=== PATIENT | male | born 1950 | race Caucasian/White ===

== ENCOUNTER → 2022-01-18 07:49 | Outpatient (CLI) | payer OTHER, SELFPAY ==
[2022-01-18 10:11] LABS: COVID19 -Nasal RAPID Negative (Negative)
== END ==
PROVIDERS: Referring Provider Orthopaedic Surgery Orthopaedic Surgery of the Spine; Visit Provider Orthopaedic Surgery Orthopaedic Surgery of the Spine
DX: Z11.59 Encounter for screening for other viral diseases (principal); Z20.822 Contact with and (suspected) exposure to COVID-19
CPT/HCPCS: 87635; C9803

== ENCOUNTER 2022-01-19 07:45 | Day surgery (SDC) | payer OTHER, SELFPAY ==
[2022-01-12 13:40] VITALS: BMI 41.6
[2022-01-19] VITALS (17 sets, daily range): BP systolic 140–177; BP diastolic 72–99; PULSE 69–106; RESP 12–18; TEMP 35.2–36.8; O2SAT 94–97; BMI 41.6
--- NOTE | 2022-01-19 | DI.RAD.S_ITS ---
PROCEDURE: XR LUMBAR SPINE 2-3V INDICATIONS: L4-5 L5-S1 TLIF TECHNIQUE: 2 intraop views of the lumbar spine were acquired. COMPARISON: None. FINDINGS: Intraoperative views obtained demonstrate fusion hardware and interbody device placement in the lower lumbar spine and lumbosacral junction. IMPRESSION: Intraoperative imaging as above. Dictated by: Andrew Melchor M.D. on 01/19/2022 at 14:24 Transcribed by: CURRY on 01/19/2022 at 14:25 Approved by: Andrew Melchor M.D. on 01/19/2022 at 16:54
[2022-01-19] MEDS: LACTATED RINGERS 1,000 ML 42 ML IV ×3 (08:23→11:50)
--- NOTE | 2022-01-19 08:24 | SUR.PREOP ---
States that he is unsure which medications he takes in the morning or evening. States that his metoprolol was taken either last night or this morning.
--- NOTE | 2022-01-19 08:52 | PM.PREOP ---
Pre-operative Note COVID-19 COVID-19 status: Negative Result date/Date tested (Pos, Neg/Pending): 01/18/22 Criteria for continued procedure: Expected advancement of disease process, Possibility delay results in more complex future surgery or treatment, Increased loss of function, Continuing or worsening of significant or severe pain, Deterioration of the patient's condition or overall health and Delay expected to result in less-positive ultimate med/surg outcome Interval Note History & Physical reviewed/Exam performed by Physician: Yes Changes to H&P: No
[2022-01-19] MEDS: CEFAZOLIN 2 GM/20 ML SYRINGE IV ×2 (10:00→18:17)
--- NOTE | 2022-01-19 10:24 | SUR.OPER ---
Addendum entered by Bonnie Leal R.N. 01/19/22 10:50: Prone on spine table, head in foam head support, neck alignment and pressure points approved by anesthesia and surgeon. Upper body ama hugger applied. Padded chest and pelvic supports, gel pad at knees, between heels padded with gel pad, lower legs supported by pillows and toes floating free; nipples, genitalia and toes free of pressure,arms secured on foam padded arm boards at <90 degrees abduction. Tape over blanket at thigh secured to table. Positioning onto prone table directed and approved by surgeon. Original Note: Prone on spine table, head in foam head support, padded chest and pelvic supports, gel pad at knees, lower legs supported by pillows; nipples, genitalia and toes free of pressure, arms secured on foam padded arm boards at <90 degrees abduction. Tape over blanket at thigh secured to table.
[2022-01-19] MEDS: BUPIVACAINE 0.5% (PF) 30 ML, EPINEPHrine 0.15 MG INJ (12:03)
[2022-01-19] MEDS: BUPIVACAINE LIPOSOME 266 MG/20 ML VIAL INJ (12:04)
--- NOTE | 2022-01-19 12:35 | PM.OP.1 ---
Operative Date/Time/Diagnoses Date of procedure: 01/19/22 Time of procedure: 10:00 Pre-op diagnosis: 1. L4-5, L5-S1 spinal stenosis with radiculopathy 2. Lumbar spondylosis with radiculopathy Post-op diagnosis: same Procedure & Clinicians Procedure: 1. L4-5, L5-S1 Postero-lateral and posterior interbody fusion 2. L4-5, L5-S1 interbody cage placement. 3. L4-5, L5-S1 decompressive laminectomy with bilateral facetecomies 4. L4-5, L5-S1 Posterior segmental instrumentation 5. [place] of bone marrow from iliac crest 6. Utilization of microsurgical technique and operating microscope 7. Utilization of robotic assised navigation Same procedure as scheduled: Yes Indications: Patient has been having chronic back pain and worsening lumbar radiculopathy. Patient failed multiple conservative management with worsening pain weakness and numbness in his lower extremity. Patient has been having difficulty performing activity of daily living. After discussing risks benefits of treatment options, patient elected proceed with surgery. Surgeon: Yadi Lacy Receiving Associate: Sydnee Mccullough Click Yes if Unassisted: No Anesthesia Type: General Operative Notes Closure Type: primary Specimen(s): none sent Prosthetic devices, grafts, tissues, transplants, or devices: Globus CREO MIS screws, Rise cages Applied: catheter Estimated Blood Loss (mL): 150 Blood products transfused: none Procedure in detail: Patient was seen in the preoperative area. Risks and benefits of the surgery was discussed with the patient. Informed consent was obtained from the patient and placed in the chart. Surgical site was marked. Patient was taken to the operative room. General anesthesia was administered. Prophylactic antibiotic was given to the patient less than 30 min before the incision was made. Patient was placed into a prone position on the Thomas table. Patient's back was then prepped and draped in the sterile fashion. Time-out was performed at this time. After patient was prepped and draped, patient's PSIS was palpated and marked bilaterally. Small 1 cm incision was made over the PSIS for placement of the reference probes. Two trocar was placed into the PSIS 1 on each side. The reference probe was attached to the trocar of the reference apparatus. At this time the C-arm imaging was used to confirm AP and lateral of L4-L5, L5-S1 vertebrae and merged the C-arm imaging using the flipClass robotic navigation system with the CT of the lumbar spine. After successful merging was completed and confirmed, skin marker was used to jeffry out the skin incision using the flipClass robotic arm. Bilateral incision was made at this time. Pre templated trajectory was used and guided using the flipClass robotic navigation system for bilateral L4, L5, S1 pedicle screw placement. This was done by using the robotic arm to guide the high-speed bur to make a cortical entry point. Next a drill was placed also using the robotic arm and guided using the navigation system drilling partially through bilateral L4, L5 and S1 pedicles. Next L4, L5, S1 pedicle screws it was pre templated and measured was placed onto the power wagon driver salesperson and inserted into the pedicles bilaterally. After all 6 screws were placed C-arm imaging was taken of both AP and lateral to confirm the placement. Excellent placement of the screws were confirmed and a matched precisely with the pre planned screw placement using the navigation system. MARs retractor was inserted using IntYivation guidence. Globus MARS retractors was placed inside the incision and docked onto the L4 and L5 lamina. Using microsurgical technique and operating microscope, a L4, L5 laminectomy and L4-5, L5-S1 facetectomy was performed using a Kerrison rongeur. Patient was found have severe lateral recess and neural foramen stenosis which was fully decompressed after the laminectomy facetectomy. More than 75% of the facets were removed during the process of decompression rendering L4-5, L5-S1 level grossly unstable and required a fusion procedure at the same time. The disc space at L4-5, L5-S1 was identified, and a total diskectomy was performed at L4-5, L5-S1 level. The endplates were decorticated using a rasp and shaver. The total diskectomy and decortication was performed at L4-5, L5-S1 level in order to to accomplish a L4-5, L5-S1 fusion. The local bone from the laminectomy and facetectomy was saved for local bone grafting. After the total diskectomy and decortication was completed, Trifecta bone graft material was combined with local bone that was harvested earlier. At this time, a separate skin is incision was made over the iliac crest. A Jamshidi needle was inserted into the iliac crest through a separate skin incision. 5 cc of bone marrow aspiration was obtained through the separate skin incision using a Jamshidi needle from the iliac crest. The bone marrow aspiration was combined with local bone and the Trifecta bone grafting material. The bone grafting material was placed into the L4-5, L5-S1 interbody space along with a expandable cage. The cage was expanded to its maximum height using the torque limiting screwdriver. The disc preparation as well as the cage insertion were also performed under navigation guidance. After the cage was placed, AP and lateral C-arm imaging was taken to confirm placement of the cage and excellent position was confirmed. Globus MARS retractor was inserted and docked onto the L4-5, L5-S1 posterolateral gutter on the right side. Using the power drill, posterior-lateral decortication was performed at L4-5, L5-S1 level until bleeding cortical bone was identified. The remaining bone grafting material was placed into the L4-5, L5-S1 posterior lateral gutter he order to accomplish posterolateral fusion at the L4-5, L5-S1 level. At this time the tulips were attached to the L4, L5, S1 pedicle screw shanks. After measuring the length of the rods, they were inserted into the tulips of the pedicle screws and locked in place using locking caps and torque limiting screwdriver bilaterally. Total 6 caps and 2 titanium rods was used in order to complete the posterior instrumentation construct. After all the hardware was placed, and confirmed with AP and lateral C-arm imaging, the wound was then irrigated with sterile normal saline and packed with Ray-Jl gauze for 3 min to accomplish hemostasis. After the gauze was removed the deep fascia was closed with #1 Vicryl suture. The subcutaneous layer was closed with 2-0 Vicryl. The skin was closed with skin skyler. Patient tolerated the procedure well. There were no surgical complications. Patient had a difficult intubation at the beginning of the surgery. Patient was successfully intubated and tolerated general anesthesia without issues. Complications: none Post-operative Condition: stable Disposition: PACU Plan for aftercare: Admit to inpatient hospital
[2022-01-19] MEDS: fentaNYL 100 MCG/2 ML INJ IV ×2 (13:07→13:15)
[2022-01-19] MEDS: HYDROMORPHONE 2 MG INJ IV ×3 (13:10→13:27)
[2022-01-19] MEDS: OXYCODONE/ACETAMINOPHEN 5/325 TABLET 1 TAB PO ×2 (13:13→13:45)
--- NOTE | 2022-01-19 14:07 | SUR.PHASEI ---
report called to Tere RUIZ and opportunity for questions given. Pt being transferred to room 224. pt updated on plan of care and is agreeable.
[2022-01-19] MEDS: SODIUM CHLORIDE 0.9% 1,000 ML 100 ML IV ×2 (15:00→23:55)
[2022-01-19] MEDS: hydrOXYzine pamoate 25 MG CAPSULE PO (15:36)
[2022-01-19] MEDS: ACETAMINOPHEN 325 MG TABLET 650 MG PO (15:40)
[2022-01-19] MEDS: OXYCODONE IR 5 MG TABLET 10 MG PO ×2 (15:40→23:54)
[2022-01-19] MEDS: ONDANSETRON 4 MG/2 ML INJ IV ×2 (17:00→23:54)
[2022-01-19] MEDS: HYDROMORPHONE 0.5 MG INJ IV ×2 (18:12→20:21)
--- NOTE | 2022-01-19 19:48 | PC.NURSE ---
Pt arrived from PACU at 1420, VSS afebrile, weaned to RA. He reports pain 7-10/10 and mild to moderate nausea. He is able to get up to the chair x1 assist. Liu draining CYU. Dressing to back with shadow dressing, upon getting back to bed some moderate bleeding to dressing, reinforced dressing with x1 ABD pad. He uses IS reaching 3000. IVF NS at 100 ml/hr. He reports baseline numbness to fingers and toes. endorsed to oncoming RN.
[2022-01-19] MEDS: sulfaSALAzine 500 MG TABLET 1000 MG PO (20:15)
[2022-01-19] MEDS: HYDROXYCHLOROQUINE 200 MG TABLET 400 MG PO (20:15)
[2022-01-19] MEDS: ATORVASTATIN 20 MG TABLET 10 MG PO (20:15)
[2022-01-19] MEDS: DOCUSATE 100 MG CAPSULE PO (20:17)
[2022-01-19] MEDS: SENNOSIDES 8.6 MG TABLET 17.2 MG PO (20:17)
[2022-01-19] MEDS: HYDROCODONE/ACET 5/325 TABLET 1 TAB PO (20:21)
[2022-01-20 00:41] VITALS: BP 158/83; PULSE 90; RESP 18; TEMP 36.1; O2SAT 97
[2022-01-20] MEDS: CEFAZOLIN 2 GM/20 ML SYRINGE IV (01:47)
[2022-01-20 05:01] LABS: Hematocrit 43.3 % (41-53); Hemoglobin 14.5 g/dL (13.5-17.5)
--- NOTE | 2022-01-20 08:01 | PM.PNPO.1 ---
Subjective Subjective Date Patient Seen: 01/20/22 Time Patient Seen: 08:01 Interval history: Patient is complaining of moderate to severe low back pain this morning. His nausea is resolving with Zofran. He has not worked with physical therapy yet. He notes he has bilateral upper and lower extremity numbness at his baseline. No major changes since surgery. Exam Vital Signs (past 8 hours): - 01/20/22 00:41 Temperature 97.0 F L Pulse Rate 90 Respiratory Rate 18 Blood Pressure 158/83 H Pulse Oximetry 97 Oxygen Flow Rate 0 Oxygen Delivery Method Room Air Oxygen Flow Rate 0 Narrative Exam Narrative: Pleasant 71-year-old male, resting comfortably in bed, no acute distress. Bilateral upper extremity: Motor functions are grossly intact, including okay sign, wrist flexion and extension and finger intrinsics. Bilateral upper extremity sensation is grossly intact to light touch. Bilateral lower extremity: Motor functions are grossly intact, sensation is grossly intact to light touch, calves are soft and nontender to palpation. Dressing is clean, dry, intact. No surrounding erythema or induration. Objective Labs Result Diagrams: 01/20/22 04:45 Labs: Laboratory Results - last 24 hr 01/20/22 04:45 Hgb 14.5 Hct 43.3 PFSH Medical History Acid reflux Anesthesia Easy bruisability Hearing impaired History of falling HLD (hyperlipidemia) HTN (hypertension) Pericarditis Pre-diabetes Sciatica Spinal stenosis Spondylolisthesis Testicular cancer (~2006) Surgical History History of surgery History of surgical removal of testicle (~2006) Hx of cervical spine surgery (2003) Hx of tonsillectomy Social History household members: none Smoking Status: Never smoker alcohol intake: former Assessment & Plan Post-op Postoperative Procedures: Procedures Operation Date: 01/19/22 08:45 Actual Procedure Side Surgeon p L4-5, L5-S1 TLIF w. posterior instrumentation-Robot Yadi Lacy MD Postoperative day: 1 Postoperative status narrative: -stable status post L4-5, L5-S1 TLIF -postop nausea, resolving Postoperative plan narrative: -mobilize with PT/OT. Weightbearing as tolerated with front wheel walker. Limit bending, lifting, twisting x6 weeks. -continue with multimodal pain management -DC urinary catheter to date -possibly DC home today versus tomorrow, pending PT evaluation. We will check in with him later this afternoon.
[2022-01-20 08:19] VITALS: BP 150/73
[2022-01-20] MEDS: DOCUSATE 100 MG CAPSULE PO (08:19)
[2022-01-20] MEDS: FOLIC ACID 1 MG TABLET PO (08:19)
[2022-01-20] MEDS: METOPROLOL ER 50 MG TABLET PO (08:19)
[2022-01-20 08:20] VITALS: BP 150/73; PULSE 100; RESP 18; TEMP 37; O2SAT 95
[2022-01-20] MEDS: AMLODIPINE 5 MG TABLET 10 MG PO (08:20)
[2022-01-20] MEDS: allopurinoL 300 MG TABLET PO (08:20)
[2022-01-20] MEDS: LOSARTAN 50 MG TABLET PO (08:20)
[2022-01-20] MEDS: OXYCODONE IR 5 MG TABLET 10 MG PO ×3 (08:20→15:02)
[2022-01-20] MEDS: sulfaSALAzine 500 MG TABLET 1000 MG PO (08:20)
[2022-01-20] MEDS: PANTOPRAZOLE DR 20 MG TABLET PO (08:20)
[2022-01-20] MEDS: methocarbamoL 500 MG TABLET 750 MG PO (08:21)
--- NOTE | 2022-01-20 10:52 | CM.DANOTE ---
DCP Assessment Payor: Ruiz PCP: MD Zoe Pt is a 71 y.o. M who was admitted to the floor following a spinal stenosis procedure with Dr. Lacy on 01/19. Pt reported to the ortho outpatient clinic on 01/07 for ongoing low back pain. Pt had a cervical sx in 2003. Pt states that his low back pain radiates down into bilateral lower extremities. Pt states that within the last 2 months he completed PT and had 2 steroid injections. DCP met with patient this morning to discuss discharge plans. DCP introduced herself and role. Pt sitting up in bed reading a book. Pt states that he is fairly independent and lives alone with his dog in a mobile home in [place]. Currently, his daughter is taking care of his dog and plans to help the pt when he is discharged. Pt states that he uses a cane at baseline. Pt states that he has tried to use HH before but ran into problems with his insurance. Pt is open to the idea again if needed. Pt states that he does not have any other needs or questions at this time. Pt states that he would call if any arise. Pt thankful for the discussion. Whiteboard updated and instructed to call. DCP to continue to follow. P: Pt to work with PT/OT and pending evals will determine plan for pt. Destinee Damian RN/MARTINE Discharge Planning/Care Management Advanced directive, confirm from FAMILY Start: 01/19/22 18:24 Freq: Q24H Status: Active Protocol: Document 01/19/22 18:24 [place] (Rec: 01/19/22 19:36 [place] [id number]) Advance Directive, confirm on record Time 19:36 Person contacted patient Copy received No CM Discharge Assessment Start: 01/20/22 10:51 Freq: Status: Active Protocol: Document 01/20/22 10:51 AJ (Rec: 01/20/22 10:51 AJ [id number]) Discharge Planning Assessment Assigned Flag Signaler Destinee Damian RN/MARTINE Advance Directives? Yes Advance Directives on File No History Provided By Patient Prior Living Arrangements Mobile home Household Members none Type of transporation used prior to Drives own vehicle admit Independent with ADL's Yes Is patient alert and oriented? Yes Caregiver for Another No DME Already Rented / Owned Cane Barriers to Discharge No Discharge Plan Home Referrals Initiated None needed Additional Comment At this time. R/O HH Whiteboard Updated in Patient Room with Yes name and ext. # of Flag Signaler Comment Instructed to call. Review Status In Process Please Provide Date Initial DC 01/20/22 Assessment Was Performed Next Review Type Continued Stay Review Pre-Anesthesia Assessment Start: 01/12/22 13:40 Freq: Status: Active Protocol: Document 01/12/22 13:40 CAB (Rec: 01/12/22 14:53 CAB [id number]) Pre-Anesthesia Assessment Preferred Name Amadeo Patient Information Reviewed Via Phone Assessment Assessment Completed With Patient Diagnostic Results BMP/CMP,CBC,EKG Comment Outside labs/ECG scanned, COVID screen @ 01/18 Primary Care Provider retired Seen Specialist in Last 12 Months Yes Specialist Seen Orthopedist,Other Comment RA Primary Language French Teletypesetter Operator Required No Height 172.72 cm Weight 124.284 kg Body Mass Index (BMI) 41.6 Hearing Ability Normal Visual Assist Glasses Dentition Type Teeth, Natural Present,Teeth, Missing Barriers to Learning None Comment Pt denies, but has trouble answering questions, requires repeat instruction Hx Anesthesia Reactions No Hx Family Anesthesia Reaction No Hx Malignant Hyperthermia No Hx Blood Transfusions No Anesthesia Review Requested No alcohol intake former Alcohol Intake Frequency Other: Stopped over 20 years ago Smoking Status Never smoker Substance Use Type does not use Pain Present Pain Reported Musculoskeletal Symptoms Abnormal Gait,Back Pain, Difficulty Walking,Muscle Weakness,Numbness,Radiating Pain into Limb,Tingling History of Falling (Recent or History of No ) Patient is completely paralyzed or Yes completely immobile Prosthesis or Orthotic Device Cane Mental Status Oriented to own ability Comment Balance issues Is patient on oxygen? No Does patient have HUERTA/SOB No Hx Sleep Apnea No Currently Taking a Beta Enoch Yes: Metoprolol Hx Chest Pain No Hx SOB No Hx Syncope or Dizziness No Anti-Coagulant Therapy No Has a Dry Pan Charger No Cardiac Testing No Hx Pacemaker/ICD No Pacemaker Rep Required? No Cardiac Clearance Received Not Applicable Diet Type At Home Regular dysphagia No Gastrointestinal Symptoms Reflux Genitourinary Symptoms Dribbling Bladder Pattern Frequency Urinary Catheter Present No Hx Urinary Self Catheterization No Diabetes No: Pre-diabetes, controlled by diet Hx Drug Resistant Organism No Presence of External or Internal Medical Yes: Cervical hardware Devices Have you had any close contact with No someone diagnosed with COVID-19? Received a COVID vaccine? Yes Received all doses? Yes Marital Status / Lives With none Prior Living Arrangements Mobile home Number of Floors (Floors) One Floor Support System Child/Children Does the Patient Have Assistance After Yes: Daughter will be Surgery available to assist, unsure if she'll spend the night Patient Discharge Plan Description Return Home Comment Pt advised 2-3 day length of stay per surgeon Feels Safe in Current Environment Yes Been Physically Hurt or Threatened By a No Person in Current Environment Do you have thoughts of harming yourself None or others? Are you currently considering suicide? No Do you have a plan to hurt yourself or No Plan others? Do You Have Any Spiritual Beliefs That No May Affect Your HC Choices? Do You Have Any Cultural Practices That No May Affect Your HC Choices? Who Can We Speak to About Patient's Care Family, friends Identifying Code for Release of Patient Declines to issue Information Health Care Proxy/Next of Kin Cheyanne (daughter) Health Care Proxy Emergency Contact Name Cheyanne (daughter) Emergency Contact Advance Directives? Yes Advance Directives on File No Requested Patient Bring Advanced Yes Directives DOS Power of Radiation Protection Engineer Yes Power of Radiation Protection Engineer Name Cheyanne (nino) Power of Radiation Protection Engineer PAC Instructions Durable medical equipment, Medications to take/avoid, Nasal antibiotic,No ETOH/ petroleum product on skin DOS, NPO,Sensory aids,Sturdy shoes/ comfortable clothes,Do not bring valuables and remove jewelry
[2022-01-20] MEDS: hydrOXYzine pamoate 25 MG CAPSULE PO ×2 (11:15→15:02)
[2022-01-20 11:42] VITALS: BP 139/74; PULSE 94; RESP 18; TEMP 37.1; O2SAT 94
--- NOTE | 2022-01-20 11:59 | PT.IIE ---
Current Diagnoses Spondylolisthesis, lumbar region (01/19/22) Spinal stenosis, lumbar region with neurogenic claudication (01/19/22) Surgery Performed Operation Date: 01/19/22 08:45 Actual Procedures p L4-5, L5-S1 TLIF w. posterior instrumentation-Robot - Yadi Lacy MD Surgical History (Last Reviewed 01/20/22 @ 08:03 by Sydnee Mccullough PA-C) History of surgery History of surgical removal of testicle (~2006) Hx of cervical spine surgery (2003) Hx of tonsillectomy Medical History (Last Reviewed 01/20/22 @ 08:03 by Sydnee Mccullough PA-C) Acid reflux Anesthesia Easy bruisability Hearing impaired History of falling HLD (hyperlipidemia) HTN (hypertension) Pericarditis Pre-diabetes Sciatica Spinal stenosis Spondylolisthesis Testicular cancer (~2006) Physical Therapy Inpatient Evaluation/Re-Eval M1 PT/OT-IP Prior Functional Status Start: 01/20/22 11:49 Freq: Status: Active Protocol: Document 01/20/22 11:49 BC (Rec: 01/20/22 11:59 BC [id number]) Medical Review Prior Functional Status Medical History Reviewed Yes Mobility and Gait Independent, recent use of SPC due to LBP Activities of Daily Living and IADL's Independent Prior Functional Level (Other details) Lives I'ly in private home, dtr lives nearby, enjoys wood cutting, 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 ramp entrance Home Environment High Toilet,Walk in Shower Home Equipment Front Wheel Walker,Straight Cane Employment Status Retired M2 PT-IP Current Condition Start: 01/20/22 11:49 Freq: Status: Active Protocol: Document 01/20/22 11:49 BC (Rec: 01/20/22 11:59 BC [id number]) Physical Therapy Current Condition Current Condition Evaluation Date 01/20/22 Treatment Diagnosis difficulty with ambulation Onset Date 01/19/22 M3 PT-IP Subjective Start: 01/20/22 11:49 Freq: Status: Active Protocol: Document 01/20/22 11:49 BC (Rec: 01/20/22 11:59 BC [id number]) Subjective Physical Therapy Visit Type Type Initial Evaluation Visit Start Time 10:25 Visit Stop Time 10:57 Total Visit Minutes 30 Physical Therapy Visit Comments Patient Comments Pt eager to get out of bed Patient Goals Pt would like to be able to return to walking his dog. Therapy Pain Assessment Pain When Pain Assessed At Rest Pain Present Pain Present Pain Reported Location Lower Back Intensity 9 Scale Used Numeric (0 - 10) Pain Management Techniques Re-positioning M4 PT-IP Mobility and Gait Start: 01/20/22 11:49 Freq: Status: Active Protocol: Document 01/20/22 11:49 BC (Rec: 01/20/22 11:59 BC [id number]) PT-Bed Mobility Assessment Rolling Type of Rolling Log Rolling Level of Assist Contact Guard Assistance Supine to Sit Supine to Sit Minimal Assistance,Bedrails PT-Transfer Assessment Sit to and From Stand Sit to and from Stand Contact Guard Assistance Equipment Transfer Assistive Device Gait Belt,Front Wheeled Walker Transfers Transfer Destination Bed,Chair Transfer Technique Stand Pivot Transfer Ability Level of Assist Contact Guard Assistance Comments Mobility Comments Pt requiring min A for safe log roll technique with bed mobility. STS is a slow transfer but no physical assist needed just CGA for balance/safety. Gait Assessment Gait Gait Assistance Required: Contact Guard Assist Distance (Feet) 40 Assistive Devices Assistive Device Gait Belt,Front Wheeled Walker Gait Deviations General Gait Pattern Decreased Stride Length, Decreased Feet Clearance, Flexed Trunk,Step-to Gait,Wide Based Gait Comments Gait Comments Forward flexed trunk increasing as he fatigues, walker moving further anteriorly from Pt as he fatigues. Pain initially reduced with standing walking vs supine in bed but then began to increase after ~15'. Stair Climbing Assessment Comments Stair Climbing Comments NA PT-Balance Assessment Sitting Balance and Reactions Static Sitting Balance Ability Normal Dynamic Sitting Balance Ability Normal Standing Balance and Reactions Static Standing Balance Ability Fair Dynamic Standing Balance Ability Fair Device Used FWW M5 PT-IP Objective Assessments Start: 01/20/22 11:49 Freq: Status: Active Protocol: Document 01/20/22 11:49 BC (Rec: 01/20/22 11:59 BC [id number]) Gross Range of Motion Upper Extremity ROM Assessment Within Functional Limits Lower Extremity ROM Assessment Within Functional Limits Strength Upper Extremity Strength Assessment Within Functional Limits Lower Extremity Strength Assessment Bilaterally Impaired Comments Strength Comments BLE strength assessment grossly 4-/5 due to LBP/ fatigue. Coordination Assessment Gross Coordination Gross Coordination WNL Sensation Assessment Sensation Gross Sensation Right LE Impaired,Left LE Impaired Comments Sensation Comments Reports of decreased sensation distal BLE that was present pre-surgery. M6 PT-IP Treatment Start: 01/20/22 11:49 Freq: Status: Active Protocol: Document 01/20/22 11:49 BC (Rec: 01/20/22 11:59 BC [id number]) Physical Therapy Treatment Education Education Provided Precautions,Post-Op Packet, Safety Brace Education Patient Other Treatments Other Treatment Performed Pt educated on log roll, spinal precautions, use of FWW and proximity to COG, safe sit<>stand transfer technique. M7 PT-IP Assessment and Plan Start: 01/20/22 11:49 Freq: Status: Active Protocol: Document 01/20/22 11:49 BC (Rec: 01/20/22 11:59 BC [id number]) PT Summary Assessment and Plan Potential Rehabilitation Potential Excellent Status of Condition at Evaluation Stable Summary Impairments Pain,Strength,Balance,Bed Mobility,Transfers,Gait, Activity Tolerance Progress Towards Goals Progressing Toward Goals Assessment Summary Pt admitted s/p L4-S1 spinal fusion and laminectomy. He lives I'ly and is independent with mobility at [facility]. He cares for his 50lb dog and enjoys wood cutting. Prior to sx he started to use a SPC for LBP. He has needed DME already including a FWW. Pt's dtr will be available to assist as needed at discharge. Pt currently is requiring min to CGA for all basic transfers, gait and bed mobility. He reports some dizziness when first transferring OOB. BP supine 149/82 and after gait 141/87. He presents with activty tolerance limitations due to pain resulting in poor gait posture and safety with walker . Nsng notified of Pt's pain reports. Pt requested to remain sitting in chair. Call light in reach. At this time, recommend additional IPPT to progress ambulation, activity tolerance, and independence with transfers prior to d/c home. Goals Bed Mobility Goal Independent Transfer Goal Independent Gait Goal Independent Gait Distance 100 Days to Meet Goals 2 Frequency of Treatment Frequency Of Treatment Twice a Day Treatment Plan Physical Therapy Treatment Plan Bed Mobility Training,Transfer Training,Gait Training, Therapeutic Exercise,Balance Retraining,Post Op Education, Discharge Planning, Neuromuscular Re-ed Precautions Lumbar Precautions Log Roll,No Twisting,Limit Bending,Lifting Restriction of 10 lbs,Gait Belt above Incisional Area Recommendations To Nursing Amount of Assist Needed 1 Person Assist Discharge Recommendations PT Discharge Recommendations Home with Assistance Transportation Needs at Discharge Private Vehicle
--- NOTE | 2022-01-20 14:17 | PM.DS.1 ---
History of Present Illness History of Present Illness Date Patient Seen: 01/20/22 Time Patient Seen: 14:17 Chief complaint: Back pain Narrative: Patient states his pain is currently well controlled. Worked with physical therapy. No new complaints. Discharge Providers Provider Discharge Date: 01/20/22 Primary care physician: Oren Enriquez MD Consults: 01/19/22 14:25 Consult to Occupational Therapy Evaluate & Treat Comment: Physician Instructions: Evaluate and treat Consult to Physical Therapy Evaluate & Treat Comment: Physician Instructions: Evaluate and Treat Discharge provider: Jacques Finn PA-C Summary Hospital Course Discharge Diagnosis: 1. L4-5, L5-S1 spinal stenosis with radiculopathy 2. Lumbar spondylosis with radiculopathy Hospital Course: 1. L4-5, L5-S1 Postero-lateral and posterior interbody fusion 2. L4-5, L5-S1 interbody cage placement. 3. L4-5, L5-S1 decompressive laminectomy with bilateral facetecomies 4. L4-5, L5-S1 Posterior segmental instrumentation 5. Sterling of bone marrow from iliac crest 6. Utilization of microsurgical technique and operating microscope 7. Utilization of robotic assised navigation Same procedure as scheduled: Yes Indications: Patient has been having chronic back pain and worsening lumbar radiculopathy. Patient failed multiple conservative management with worsening pain weakness and numbness in his lower extremity.? Patient has been having difficulty performing activity of daily living.? After discussing risks benefits of treatment options, patient elected proceed with surgery. Surgeon: Yadi Lacy Document Specialist: Sydnee Mccullough Click Yes if Unassisted: No Anesthesia Type: General Operative Notes Closure Type: primary Specimen(s): none sent Prosthetic devices, grafts, tissues, transplants, or devices: Globus CREO MIS screws, Rise cages Applied: catheter Estimated Blood Loss (mL): 150 Blood products transfused: none Patient admitted to the hospital for the above-mentioned procedure. Patient consented to the same. Patient taken operating room underwent above-mentioned procedure on January 19, 2022. Patient back in his room recovering well as in stable condition. Discharge home today in stable condition. Exam Vital Signs (past 8 hours): - 01/20/22 08:19 01/20/22 08:20 01/20/22 11:42 Temperature 98.6 F 98.8 F Pulse Rate 100 H 94 H Respiratory Rate 18 18 Blood Pressure 150/73 H 150/73 H 139/74 Pulse Oximetry 95 94 Oxygen Flow Rate 0 0 Oxygen Delivery Method Room Air Oxygen Flow Rate 0 Narrative Exam Narrative: See progress note Objective Labs Result Diagrams: 01/20/22 04:45 Labs: Laboratory Results - last 24 hr 01/20/22 04:45 Hgb 14.5 Hct 43.3 PFSH Medical History Acid reflux Anesthesia Easy bruisability Hearing impaired History of falling HLD (hyperlipidemia) HTN (hypertension) Pericarditis Pre-diabetes Sciatica Spinal stenosis Spondylolisthesis Testicular cancer (~2006) Surgical History History of surgery History of surgical removal of testicle (~2006) Hx of cervical spine surgery (2003) Hx of tonsillectomy Social History household members: none Smoking Status: Never smoker alcohol intake: former Discharge Assessment & Plan Assessment and Plan Assessment: Patient progressing as expected Plan of Treatment: Discharge home today in stable condition. Discharge Plan Discharge Plan Patient Disposition: Home Provider Discharge Comment: Discontinue catheter, patient able to be discharged home today if able to urinate on his own after catheters removed. Discharge orders & Medications Discharge Orders: Discharge (Order); Ordered 01/20/22 Ordered By: Jacques Finn Prescriptions: New acetaminophen 325 mg Tablet 650 mg PO Q6HR PRN (Reason: Pain, Mild (1-3)) Qty: 60 0RF docusate sodium 100 mg Capsule 100 mg PO BID Qty: 20 0RF oxycodone 5 mg Tablet 10 mg PO Q3HR PRN (Reason: Pain, Severe (7-10)) Qty: 60 0RF Continued losartan 50 mg Tablet 50 mg PO DAILY sulfasalazine 500 mg Tablet 1 g PO BID Rx Instructions: give with food (meal/snack) metoprolol succinate 50 mg Tablet Extended Release 24 Hr 50 mg PO DAILY Label Comments: either last night or this morning hydrocodone-acetaminophen 5-325 mg Tablet 1 tab PO QD-BID PRN (Reason: Pain) methocarbamol 750 mg Tablet 750 mg PO DAILY methotrexate sodium 2.5 mg Tablet 30 mg PO QWEEK Label Comments: 15mg bid on Saturdays amlodipine 10 mg Tablet 10 mg PO DAILY simvastatin 20 mg Tablet 20 mg PO BEDTIME omeprazole 20 mg Capsule,Delayed Release(Dr/Ec) 20 mg PO DAILY Label Comments: either last night or this morning folic acid 1 mg Tablet 1 mg PO DAILY allopurinol 300 mg Tablet 300 mg PO DAILY Label Comments: takes daily, doesn't know if it's morning or evening hydroxychloroquine 200 mg Tablet 400 mg PO BEDTIME Discontinued acetaminophen 500 mg Tablet 1,000 mg PO QD-BID PRN (Reason: Pain) ibuprofen 200 mg Tablet 800 mg PO BID PRN (Reason: Pain) Follow up/Referrals: Oren Enriquez MD [Primary Care Provider] - Yadi Lacy MD [Physician] - (Two weeks) Diet/Activity/Treatments Diet: Diet as Tolerated Activity: Limit bending, lifting, twisting Skin/Wound/Dressing Care Report to your healthcare provider any signs of infection, such as:: chills, fever, increased pain, unusual drainage and unusual redness Dressing: Keep dressing clean and dry Visit Report/Discharge Packet Instructions: DI for Transforaminal Lumbar Interbody Fusion Stand Alone Forms: Surgery Discharge Discharge Data Primary Care Provider: Oren Enriquez Attending Provider: Yadi Lacy
--- NOTE | 2022-01-20 14:23 | OT.IP.EVAL ---
Current Diagnoses Spondylolisthesis, lumbar region (01/19/22) Spinal stenosis, lumbar region with neurogenic claudication (01/19/22) Surgery Performed Operation Date: 01/19/22 08:45 Actual Procedures p L4-5, L5-S1 TLIF w. posterior instrumentation-Robot - Yadi Lacy MD Past Medical History (Last Reviewed 01/20/22 @ 14:19 by Jacques Finn PA-C) Acid reflux Anesthesia Easy bruisability Hearing impaired History of falling HLD (hyperlipidemia) HTN (hypertension) Pericarditis Pre-diabetes Sciatica Spinal stenosis Spondylolisthesis Testicular cancer (~2006) Surgical History (Last Reviewed 01/20/22 @ 14:19 by Jacques Finn PA-C) History of surgery History of surgical removal of testicle (~2006) Hx of cervical spine surgery (2003) Hx of tonsillectomy Occupational Therapy Inpatient Evaluation/Re-Eval M1 PT/OT-IP Prior Functional Status Start: 01/20/22 11:49 Freq: Status: Active Protocol: Document 01/20/22 14:00 [facility] (Rec: 01/20/22 15:41 [facility] [id number]) Medical Review Prior Functional Status Medical History Reviewed Yes Mobility and Gait Independent, recent use of SPC due to LBP Activities of Daily Living and IADL's Independent Prior Functional Level (Other details) Lives I'ly in private home, dtr lives nearby, 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 ramp entrance Home Environment High Toilet,Walk in Shower Home Equipment Front Wheel Walker,Straight Cane,Shower Seat with Backrest ,Hand Held Shower,Transit Clerk,Grab Bars In Shower Employment Status Retired M2 OT-IP Current Condition Start: 01/20/22 15:28 Freq: Status: Active Protocol: Document 01/20/22 14:00 [facility] (Rec: 01/20/22 15:41 [facility] [id number]) Occupational Therapy Current Condition Current Condition Evaluation Date 01/20/22 Treatment Diagnosis S/p L4-5, L5-S1 TLIF Post Operative Precautions Lumbar Precautions Log Roll,No Twisting,Limit Bending,Lifting Restriction of 10 lbs,Gait Belt above Incisional Area M3 OT- IP Subjective and Pain Start: 01/20/22 15:28 Freq: Status: Active Protocol: Document 01/20/22 14:00 [facility] (Rec: 01/20/22 15:41 [facility] [id number]) OT- Subjective Occupational Therapy Visit Type Type Initial Evaluation Visit Start Time 14:00 Visit Stop Time 14:23 Total Visit Minutes 23 Occupational Therapy Visit Comments Patient Comments Pt agreed to get up. Patient/Caregiver Goals TO go home OT Pain Assessment Pain When Pain Assessed At Rest Pain Present Pain Present Pain Reported Location Lower Back Intensity 5 Scale Used Numeric (0 - 10) M4 OT- IP ADL's Start: 01/20/22 15:28 Freq: Status: Active Protocol: Document 01/20/22 14:00 [facility] (Rec: 01/20/22 15:41 [facility] [id number]) OT ONW-[id number]-[id number] General Evaluation Self-Feeding Ability Independent OT ADL-Grooming Comments OT Grooming Comments Pt states did earlier. OT ADL-Oral Care Comments Oral Care Comments Pt states did earlier. Educated when doing oral care to hinge at his hips or spit into a cup to best follow his back precautions. OT ADL-Dressing General Eval Lower Body Dressing Ability Standby Assistance,Maximum Assistance Comments OT Dressing Comments Pt educated on use of instructor of sociology and issued sock aid in order to do LB dressing needs. OT ADL-Toileting General Evaluation Toileting Ability Standby Assistance Comments OT Toileting Comments Pt able to lean to the side to reach to wipe. Liu still in place. Pt states will just get depend and suggested use of urinal at the edge of the bed. OT ADL-Bathing Comments OT Bathing Comments Pt not wanting to shower at this time. Strongly suggested for pt to have assist to help cover and wash his back and also help check for drainage. M5 OT- IP IADL's Start: 01/20/22 15:28 Freq: Status: Active Protocol: Document 01/20/22 14:00 [facility] (Rec: 01/20/22 15:41 [facility] [id number]) OT-Instrumental Activities of Daily Living Home Safety Awareness Awareness of Need for Assistance at Home Good Awareness Ability to Problem Solve Emergency Able to Problem Solve Situations Senior Business Intelligence Analyst Senior Business Intelligence Analyst Comments Pt states will have assist for IADL needs. Currently his daughter in coming in to assist his dog. M6 OT- IP Functional Cognition Start: 01/20/22 15:28 Freq: Status: Active Protocol: Document 01/20/22 14:00 [facility] (Rec: 01/20/22 15:41 [facility] [id number]) Cognitive Factors Limiting Selfcare Function Cognitive Ability Level of Alertness Alert Patient Orientation Name,Place,Situation Attention Span Ability Capable of Focused Attention, Capable of Sustained Attention Ability to Follow Commands Able to Follow One Step Commands Safety Awareness Decreased Recall of Precautions Cognitive Comments Cognitive Assessment Comments Pt needing reminders to recall his back precautions. Pt needing vc to push up from surfaces sitting up from for safety. OT- Vision and Hearing OT- Vision Assessment Visual Acuity Glasses All The Time M7 OT- IP Mobility and Balance Start: 01/20/22 15:28 Freq: Status: Active Protocol: Document 01/20/22 14:00 [facility] (Rec: 01/20/22 15:41 [facility] [id number]) OT- Bed Mobility Assessment Sit to Supine Sit to Supine Assist Standby Assistance OT-Transfer Assessment Sit to and From Stand Sit to and from Stand Contact Guard Assistance Transfers Transfer Ability Standby Assistance Technique Transfer Destination Bed,Chair,Toilet Transfer Technique Stand Step Pivot Devices Transfer Assistive Devices Gait Belt,Front Wheeled Walker Comments Mobility Comments Heavy use of grab bar to stand from the toilet. Pt CGA/ESME to stand form lower surfaces as has difficulty with transitions. Pt SBA from higher level with FWW. OT- Balance Assessment Sitting Balance and Reactions Static Sitting Balance Ability Good Dynamic Sitting Balance Ability Good Standing Balance and Reactions Static Standing Balance Ability Good Dynamic Standing Balance Ability Fair M8 OT- IP Objective Assessments Start: 01/20/22 15:28 Freq: Status: Active Protocol: Document 01/20/22 14:00 [facility] (Rec: 01/20/22 15:41 [facility] [id number]) OT-Muscle Tone Assessment Muscle Tone WNL Yes M9 OT- IP Assessment and Plan Start: 01/20/22 15:28 Freq: Status: Active Protocol: Document 01/20/22 14:00 [facility] (Rec: 01/20/22 15:41 [facility] [id number]) OT Summary Assessment and Plan Potential Rehabilitation Potential Good Analytic Complexity at Evaluation Low Summary OT Impairments Pain,Balance,Functional Mobility,Dressing,Toileting, Bathing,Shower Transfers Progress Towards Goals Progressing Toward Goals Assessment Summary Pt low complexity and main barriers are transitions to stand from lower surfaces, and reminders to incorporate his back precautions. Pt will benefit from someone to stay with him initially especially for showering and IADL needs. Suggest pt to go home with 24/ 7 available assist initially. Goals Grooming Goal Independent Dressing Goal Independent Toileting Goal Independent Bathing Goal Independent Toilet Transfer Goal Independent Shower Transfer Goal Independent Days to Meet Goals 3 Frequency of Treatment Frequency Of Treatment Once a Day Treatment Plan OT Treatment Plan ADL Training,Functional Cognition Training,Functional Mobility,Patient/Family Education,Discharge Planning Other Treatment Recommendations and Next shower Treatment Focus Discharge Recommendations OT Discharge Recommendations Home with 24/7 Assist Available Home Equipment Needs sock aid issued Transportation Needs at Discharge Private Vehicle
--- NOTE | 2022-01-20 15:55 | PT.IPTN ---
Current Diagnoses Spondylolisthesis, lumbar region (01/19/22) Spinal stenosis, lumbar region with neurogenic claudication (01/19/22) Surgery Performed Operation Date: 01/19/22 08:45 Actual Procedures p L4-5, L5-S1 TLIF w. posterior instrumentation-Robot - Yadi Lacy MD Physical Therapy Treatment Note M2 PT-IP Current Condition Start: 01/20/22 11:49 Freq: Status: Active Protocol: Document 01/20/22 15:43 [facility] (Rec: 01/20/22 15:55 [facility] [id number]) Physical Therapy Current Condition Current Condition Evaluation Date 01/20/22 Treatment Diagnosis difficulty with ambulation Onset Date 01/19/22 M3 PT-IP Subjective Start: 01/20/22 11:49 Freq: Status: Active Protocol: Document 01/20/22 15:43 [facility] (Rec: 01/20/22 15:55 [facility] [id number]) Subjective Physical Therapy Visit Type Type Treatment Note Visit Start Time 15:15 Visit Stop Time 15:45 Total Visit Minutes 30 Physical Therapy Visit Comments Patient Comments pt reports he is feeling ready to discharge home. His daughter would come get him to take him home but wouldn't be with him over night Therapy Pain Assessment Pain When Pain Assessed At Rest Pain Present Pain Present Pain Reported Location Lower Back Intensity 9 Scale Used Numeric (0 - 10) Pain Management Techniques Re-positioning M4 PT-IP Mobility and Gait Start: 01/20/22 11:49 Freq: Status: Active Protocol: Document 01/20/22 15:43 [facility] (Rec: 01/20/22 15:55 [facility] [id number]) PT-Bed Mobility Assessment Rolling Type of Rolling Log Rolling Level of Assist Contact Guard Assistance Supine to Sit Supine to Sit Minimal Assistance,Bedrails PT-Transfer Assessment Sit to and From Stand Sit to and from Stand Standby Assistance Equipment Transfer Assistive Device Gait Belt,Front Wheeled Walker Transfers Transfer Destination Bed,Chair Transfer Technique Stand Pivot Transfer Ability Level of Assist Standby Assistance Comments Mobility Comments pt was able to transfer from supine in bed to sitting at the edge of bed with SBA, sit- stand with verbal cueing and SBA, pt ambulated to bedside chair to practice sit-stand. He was able to perform sit- stand from bedside chair with SBA. Pt ambulated to the bathroom to use commode with SBA, he was able to stand from commode with SBA and ambulated back to bed. Gait Assessment Gait Gait Assistance Required: Contact Guard Assist Distance (Feet) 40 Assistive Devices Assistive Device Gait Belt,Front Wheeled Walker Gait Deviations General Gait Pattern Decreased Stride Length, Decreased Feet Clearance, Flexed Trunk,Step-to Gait,Wide Based Gait Comments Gait Comments pt self corrected trunk position with gait noting that he is trying to stand up straight, no increase in pain levels with gait Stair Climbing Assessment Comments Stair Climbing Comments NA M5 PT-IP Objective Assessments Start: 01/20/22 11:49 Freq: Status: Active Protocol: Document 01/20/22 11:49 [facility] (Rec: 01/20/22 11:59 [facility] [id number]) Gross Range of Motion Upper Extremity ROM Assessment Within Functional Limits Lower Extremity ROM Assessment Within Functional Limits Strength Upper Extremity Strength Assessment Within Functional Limits Lower Extremity Strength Assessment Bilaterally Impaired Comments Strength Comments BLE strength assessment grossly 4-/5 due to LBP/ fatigue. Coordination Assessment Gross Coordination Gross Coordination WNL Sensation Assessment Sensation Gross Sensation Right LE Impaired,Left LE Impaired Comments Sensation Comments Reports of decreased sensation distal BLE that was present pre-surgery. M6 PT-IP Treatment Start: 01/20/22 11:49 Freq: Status: Active Protocol: Document 01/20/22 15:43 [facility] (Rec: 01/20/22 15:55 [facility] [id number]) Physical Therapy Treatment Education Education Provided Precautions,Post-Op Packet, Safety Brace Education Patient Other Treatments Other Treatment Performed Pt educated on log roll, spinal precautions, use of FWW and proximity to COG, safe sit<>stand transfer technique. M7 PT-IP Assessment and Plan Start: 01/20/22 11:49 Freq: Status: Active Protocol: Document 01/20/22 15:43 [facility] (Rec: 01/20/22 15:55 [facility] [id number]) PT Summary Assessment and Plan Summary Assessment Summary pt on day 2 post op and feeling ready to go home. His daughter lives in [facility] and can drive him home but wont be with him over night. Time was spent discussing practicing his transfers at home with his daughter present . He was SBA for all transfers today and after transferring out of the bed side chair he feels he could transfer out of his recliner at home. Goals Bed Mobility Goal Independent Transfer Goal Independent Gait Goal Independent Gait Distance 100 Days to Meet Goals 2 Frequency of Treatment Frequency Of Treatment Twice a Day Treatment Plan Physical Therapy Treatment Plan Bed Mobility Training,Transfer Training,Gait Training, Therapeutic Exercise,Balance Retraining,Post Op Education, Discharge Planning, Neuromuscular Re-ed Precautions Lumbar Precautions Log Roll,No Twisting,Limit Bending,Lifting Restriction of 10 lbs,Gait Belt above Incisional Area Recommendations To Nursing Amount of Assist Needed 1 Person Assist Discharge Recommendations PT Discharge Recommendations Home with Assistance Transportation Needs at Discharge Private Vehicle
[2022-01-20 16:00] VITALS: BP 141/67; PULSE 108; RESP 18; TEMP 37.2; O2SAT 93
--- NOTE | 2022-01-20 17:26 | PC.NURSE ---
Addendum entered by Rajani Anthony R.N. 01/20/22 18:10: Discharge completed by JOSEPH Garcia. See his notes. Original Note: Received order for discharge home. Liu removed and patient able to subsequently void per order. PT/OT stated patient may discharge home. Daughter called and has arrived to go over discharge teaching. Ro RN, Jose, doing discharge teaching with patient and daughter including how to safely get out of bed.
== END 2022-01-20 17:45 | disposition home or self-care (01) ==
LOC: OR 07:46 → AC 14:23
PROVIDERS: PCP Family Medicine; Referring Provider Orthopaedic Surgery Orthopaedic Surgery of the Spine; Visit Provider Orthopaedic Surgery Orthopaedic Surgery of the Spine
PROC: (CPT 22633; principal; 2022-01-19 08:45)
DX: M48.062 Spinal stenosis, lumbar region with neurogenic claudication (principal); M48.07 Spinal stenosis, lumbosacral region; M47.26 Other spondylosis with radiculopathy, lumbar region; M43.16 Spondylolisthesis, lumbar region; K21.9 Gastro-esophageal reflux disease without esophagitis; E78.5 Hyperlipidemia, unspecified; I10 Essential (primary) hypertension; R73.03 Prediabetes; Z85.47 Personal history of malignant neoplasm of testis
CPT/HCPCS: 22633; 22634; 22853; 22842; 20936; 20939; 63052; 63053; 00670; 36415; 72100; 76000; 82962; 85014; 85018; 97161; 97165; 97530; 97535; C1831; C9290; J0171; J0690; J1100; J1170; J2250; J2405; J2704; J3010